=== PATIENT | female | born 2000 | race African-American/Black ===

== ENCOUNTER 2021-04-24 22:25 | Emergency (ER) | payer MEDICAID, OTHER ==
[~2021-04-24] VITALS: Ht 167.6 cm; Wt 72.6 kg
[2021-04-25 02:06] VITALS: BP 117/68
== END 2021-04-25 03:06 | disposition left against medical advice (07) ==
LOC: ER 22:28 → EDBD 22:28 → ER 04-25 03:06
DX: R07.89 Other chest pain (principal); Z53.21 Procedure and treatment not carried out due to patient leaving prior to being seen by health care provider
CPT/HCPCS: 93005